=== PATIENT | female | born 1950 | race Caucasian/White ===

== ENCOUNTER 2020-07-18 09:49 | Outpatient (CLI) | payer MEDICARE | END 2020-07-18 09:50 | disposition home or self-care (01) | LOC: CSHMAMMO 09:49 | PROVIDERS: ATTEND Family Medicine | DX: Z12.31 Encounter for screening mammogram for malignant neoplasm of breast (principal) | CPT/HCPCS: 77063; 77067 ==

== ENCOUNTER 2021-01-07 03:35 | Inpatient (IN) | payer OTHER, MEDICARE ==
[2021-01-07] MEDS ORDERED: Fentanyl 100 MCG/2 ML VIAL ONE ×3 (03:47→14:16)
[2021-01-07] MEDS ORDERED: PROPOFOL 20 ML ONE ×2 (03:56→13:04)
[2021-01-07] MEDS ORDERED: Boostrix 0.5 ML (Tdap) VIAL ONE (03:58)
[2021-01-07 04:05] LABS: #Eosinphils 0.1 10x3/uL (0.0-0.5); #Monocytes 0.3 10x3/uL (0.0-1.1); #Neutrophils 4.9 10x3/uL (1.5-8.4); %Basophils 0.5 % (0.0-2.0); %Eosinophils 0.8 % (0.0-6.0); %Lymphocytes 19.6 % (18.0-47.0); %Monocytes 3.8 % (0.0-10.0); %Neutrophils 74.7 % (40.0-75.0); Mean Corpuscular HGB CONC 33.4 g/dL (32.0-36.0); Mean Corpuscular Volume 92.9 fl (81.6-98.3); Mean Platelet Volume 10.1 fl (7.4-10.4); Platelet Count 226 10x3/uL (150-450); RBC Distribution Width 13.9 % (11.5-14.5); Red Blood Cell (RBC) Count 4.51 10x6/uL (3.90-5.03); White Blood Cell (WBC) Count 6.5 10x3/uL (3.5-10.5)
[2021-01-07 04:13] LABS: PTT 22.3 sec (22.0-33.0); Prothrombin Time 10.9 sec (9.5-12.1)
[2021-01-07 04:17] LABS: ALT (SGPT) 13 U/L (8-55); AST (SGOT) 17 U/L (5-34); Albumin 4.5 g/dL (3.4-4.8); Alkaline Phosphatase 60 U/L (40-110); Anion Gap 19 mmol/L (10-20); BUN (Urea Nitrogen) 8 mg/dL (9.8-20.1); Bilirubin, Total 0.4 mg/dL (0.2-1.2); Calc. Creatinine Clearance 0 mL/min (70-130); Calcium 9.2 mg/dL (7.8-10.44); Carbon Dioxide 21 mmol/L (23-31); Chloride 110 mmol/L (98-107); Glucose 133 mg/dL (80-115); Potassium 3.6 mmol/L (3.5-5.1); Protein, Total 7.5 g/dL (5.8-8.1); Sodium 146 mmol/L (136-145)
[2021-01-07 04:32] LABS: Acetaminophen Less than 6.0 mcg/mL (10.0-30.0); Alcohol 182 mg/dL (Less than 10); Salicylate Less than 8.0 mg/dL (15.0-30.0)
[2021-01-07] MEDS ORDERED: Calcium Carbonate 500 MG ChewTAB PO PRN (05:05)
[2021-01-07] MEDS ORDERED: Ondansetron PF 4 MG/2 ML Vial IVP PRN (05:05)
[2021-01-07] MEDS ORDERED: Zolpidem Tartrate 5 MG TAB PO PRN (05:05)
[2021-01-07] MEDS ORDERED: Acetaminophen 325 MG TAB PO PRN (05:05)
[2021-01-07] MEDS ORDERED: Senokot S 8.6-50 MG TAB PO PRN (05:05)
[2021-01-07] MEDS ORDERED: Guaifenesin DM 100-10/5 ML UDCUP PO PRN (05:05)
[2021-01-07] MEDS ORDERED: Lorazepam 2 MG/ML VIAL SLOW IVP PRN (05:09)
[2021-01-07 05:15] LABS: SARS-CoV-2 NAA Rapid Test Not Detected (NotDetected)
[2021-01-07 06:51] VITALS: BMI 26.1
[2021-01-07] MEDS ORDERED: Morphine 4 MG/ML VIAL SLOW IVP PRN (06:59)
[2021-01-07] MEDS: Folic Acid 1 MG TAB PO SCH (09:00)
[2021-01-07] MEDS: Multivitamin W/ Minerals 1 TAB PO SCH (09:00)
[2021-01-07] MEDS: Nicotine 21 MG PATCH TD SCH (09:00)
[2021-01-07] MEDS: Thiamine HCl 200 MG/2 ML VIAL SLOW IVP SCH (09:00)
[2021-01-07] MEDS: Famotidine/PF 20 mg/2ml Vial SLOW IVP SCH ×2 (09:00→23:12)
[2021-01-07] MEDS ORDERED: Lisinopril 5 MG TAB PO SCH (09:00)
[2021-01-07] MEDS ORDERED: Aspirin 81 mg Enteric Coated Tablet PO SCH (09:00)
[2021-01-07] MEDS ORDERED: Cholecalciferol 1,000 UNITS (25 MCG) TAB PO SCH (09:00)
[2021-01-07] MEDS ORDERED: EPINEPHrine 1 MG/ML AMP ONE (13:01)
[2021-01-07] MEDS ORDERED: Neomycin-Polymyxin 1 ML AMP ONE (13:01)
[2021-01-07] MEDS ORDERED: Bupivacaine PF 0.5% 30 ML VIAL ONE (13:01)
[2021-01-07] MEDS ORDERED: Ondansetron PF 4 MG/2 ML Vial ONE (13:04)
[2021-01-07] MEDS ORDERED: Lidocaine 1% PF 5 ML VIAL ONE (13:04)
[2021-01-07] MEDS ORDERED: Dexamethasone 4 mg/ml Vial ONE (13:04)
[2021-01-07] MEDS ORDERED: Midazolam HCl 2 mg/2 ml Vial ONE (13:04)
[2021-01-07] MEDS ORDERED: ceFAZolin 2 GM/DEX 5% 100 ML BAG ONE (13:09)
[2021-01-07] MEDS ORDERED: ePHEDrine Sulfate 50 MG/10 ML VIAL ONE (13:41)
[2021-01-07] MEDS ORDERED: Ketorolac Tromethamine 30 MG/ML VIAL ONE (13:50)
[2021-01-07] MEDS ORDERED: HYDROcodone/Acetaminophen 5/325 mg Tablet PO PRN (15:36)
[2021-01-07] MEDS ORDERED: TETANUS AND DIPHTHERIA TOX/PF 0.5 ML DISP.SYRIN IM SCH (15:45)
[2021-01-07] MEDS: Lactated Ringer's 1,000 ML IV SCH ×2 (16:09→20:17)
[2021-01-07] MEDS ORDERED: Enoxaparin Sodium 40 MG/0.4 ML SYRINGE SC SCH (21:00)
[2021-01-07] MEDS ORDERED: Rosuvastatin 10 MG TAB PO SCH (21:00)
[2021-01-07] MEDS: ceFAZolin Sodium/D5W 2 GM in Premix Bag 1 BAG IVPB SCH (23:03)
[2021-01-07] MEDS: Aspirin 81 mg Enteric Coated Tablet PO SCH (23:04)
[2021-01-07] MEDS: HYDROcodone/Acetaminophen 5/325 mg Tablet PO PRN (23:05)
[2021-01-08] MEDS: Lactated Ringer's 1,000 ML IV SCH ×3 (03:56→17:17)
[2021-01-08] MEDS: ceFAZolin Sodium/D5W 2 GM in Premix Bag 1 BAG IVPB SCH ×3 (05:46→22:38)
[2021-01-08 06:29] LABS: #Monocytes 0.6 10x3/uL (0.0-1.1); #Neutrophils 7.1 10x3/uL (1.5-8.4); %Basophils 0.1 % (0.0-2.0); %Lymphocytes 11.6 % (18.0-47.0); %Monocytes 6.8 % (0.0-10.0); Mean Corpuscular HGB CONC 33.1 g/dL (32.0-36.0); Mean Corpuscular Hemoglobin 31.3 pg (27.0-33.0); Mean Corpuscular Volume 94.6 fl (81.6-98.3); Mean Platelet Volume 10.9 fl (7.4-10.4); Platelet Count 169 10x3/uL (150-450); RBC Distribution Width 13.9 % (11.5-14.5); Red Blood Cell (RBC) Count 3.51 10x6/uL (3.90-5.03); White Blood Cell (WBC) Count 8.8 10x3/uL (3.5-10.5)
[2021-01-08 06:54] LABS: Anion Gap 16 mmol/L (10-20); BUN (Urea Nitrogen) 11 mg/dL (9.8-20.1); CK (CPK) 243 U/L (29-168); Calc. Creatinine Clearance 84 mL/min (70-130); Calcium 8.2 mg/dL (7.8-10.44); Carbon Dioxide 21 mmol/L (23-31); Chloride 106 mmol/L (98-107); Glucose 125 mg/dL (80-115); Magnesium 1.6 mg/dL (1.6-2.6); Potassium 3.9 mmol/L (3.5-5.1); Sodium 139 mmol/L (136-145)
[2021-01-08] MEDS ORDERED: FLU VACC QS2021-22(65YR UP)/PF 240 MCG/0.7 ML SYRINGE IM ONE (07:30)
[2021-01-08] MEDS: Nicotine 21 MG PATCH TD SCH (11:00)
[2021-01-08] MEDS: HYDROcodone/Acetaminophen 5/325 mg Tablet PO PRN ×3 (11:02→20:45)
[2021-01-08] MEDS: Thiamine HCl 200 MG/2 ML VIAL SLOW IVP SCH (11:03)
[2021-01-08] MEDS: Multivitamin W/ Minerals 1 TAB PO SCH (11:03)
[2021-01-08] MEDS: Aspirin 81 mg Enteric Coated Tablet PO SCH ×2 (11:03→20:31)
[2021-01-08] MEDS: Folic Acid 1 MG TAB PO SCH (11:04)
[2021-01-08 11:12] LABS: Hemoglobin A1c 5.6 % (4.0-6.0)
[2021-01-08] MEDS: Famotidine/PF 20 mg/2ml Vial SLOW IVP SCH ×2 (12:37→20:32)
[2021-01-08] MEDS: Lisinopril 20 MG TAB PO SCH (20:31)
[2021-01-08] MEDS: Cholecalciferol 1,000 UNITS (25 MCG) TAB PO SCH (20:31)
[2021-01-08] MEDS: Rosuvastatin 20 MG TAB PO SCH (20:32)
[2021-01-08] MEDS ORDERED: Aspirin 81 mg Enteric Coated Tablet PO SCH (21:00)
[2021-01-09 05:06] LABS: #Monocytes 0.7 10x3/uL (0.0-1.1); #Neutrophils 4.6 10x3/uL (1.5-8.4); %Basophils 0.3 % (0.0-2.0); %Eosinophils 0.4 % (0.0-6.0); %Lymphocytes 27.7 % (18.0-47.0); %Monocytes 9.4 % (0.0-10.0); %Neutrophils 61.8 % (40.0-75.0); Hemoglobin 10.7 g/dL (12.0-15.5); Mean Corpuscular HGB CONC 33.6 g/dL (32.0-36.0); Mean Corpuscular Hemoglobin 31.6 pg (27.0-33.0); Mean Corpuscular Volume 93.8 fl (81.6-98.3); Mean Platelet Volume 10.7 fl (7.4-10.4); Platelet Count 156 10x3/uL (150-450); RBC Distribution Width 14.1 % (11.5-14.5); Red Blood Cell (RBC) Count 3.39 10x6/uL (3.90-5.03); White Blood Cell (WBC) Count 7.4 10x3/uL (3.5-10.5)
[2021-01-09 05:08] LABS: Anion Gap 14 mmol/L (10-20); BUN (Urea Nitrogen) 9 mg/dL (9.8-20.1); CK (CPK) 386 U/L (29-168); Calc. Creatinine Clearance 89 mL/min (70-130); Calcium 8.2 mg/dL (7.8-10.44); Carbon Dioxide 25 mmol/L (23-31); Chloride 107 mmol/L (98-107); Glucose 113 mg/dL (80-115); Potassium 3.6 mmol/L (3.5-5.1); Sodium 142 mmol/L (136-145)
[2021-01-09] MEDS: Lactated Ringer's 1,000 ML IV SCH ×3 (05:15→17:18)
[2021-01-09] MEDS: HYDROcodone/Acetaminophen 5/325 mg Tablet PO PRN ×3 (05:15→23:06)
[2021-01-09] MEDS: ceFAZolin Sodium/D5W 2 GM in Premix Bag 1 BAG IVPB SCH ×3 (05:16→21:07)
[2021-01-09] MEDS: Famotidine/PF 20 mg/2ml Vial SLOW IVP SCH ×2 (10:38→21:07)
[2021-01-09] MEDS: Folic Acid 1 MG TAB PO SCH (10:38)
[2021-01-09] MEDS: Multivitamin W/ Minerals 1 TAB PO SCH (10:38)
[2021-01-09] MEDS: Thiamine HCl 200 MG/2 ML VIAL SLOW IVP SCH (10:38)
[2021-01-09] MEDS: Aspirin 81 mg Enteric Coated Tablet PO SCH ×2 (10:38→21:08)
[2021-01-09] MEDS: Nicotine 21 MG PATCH TD SCH (10:39)
[2021-01-09] MEDS ORDERED: Sodium Chloride 0.9% 500 ML IV SCH (16:15)
[2021-01-09] MEDS: Sodium Chloride 0.9% 1,000 ML IV SCH (18:24)
[2021-01-09] MEDS: Cholecalciferol 1,000 UNITS (25 MCG) TAB PO SCH (21:08)
[2021-01-09] MEDS: Docusate 100 MG CAP PO SCH (21:08)
[2021-01-09] MEDS: Rosuvastatin 20 MG TAB PO SCH (21:08)
[2021-01-09] MEDS: Lisinopril 20 MG TAB PO SCH (21:08)
[2021-01-10] MEDS: Sodium Chloride 0.9% 1,000 ML IV SCH ×2 (01:45→13:29)
[2021-01-10 03:44] LABS: #Eosinphils 0.1 10x3/uL (0.0-0.5); #Monocytes 0.7 10x3/uL (0.0-1.1); #Neutrophils 4.2 10x3/uL (1.5-8.4); %Basophils 0.3 % (0.0-2.0); %Lymphocytes 26.2 % (18.0-47.0); %Monocytes 9.4 % (0.0-10.0); %Neutrophils 61.7 % (40.0-75.0); Hemoglobin 10.7 g/dL (12.0-15.5); Mean Corpuscular HGB CONC 33.5 g/dL (32.0-36.0); Mean Corpuscular Hemoglobin 31.4 pg (27.0-33.0); Mean Corpuscular Volume 93.5 fl (81.6-98.3); Mean Platelet Volume 10.7 fl (7.4-10.4); Platelet Count 164 10x3/uL (150-450); RBC Distribution Width 13.9 % (11.5-14.5); Red Blood Cell (RBC) Count 3.41 10x6/uL (3.90-5.03); White Blood Cell (WBC) Count 6.9 10x3/uL (3.5-10.5)
[2021-01-10 03:59] LABS: Anion Gap 12 mmol/L (10-20); BUN (Urea Nitrogen) 7 mg/dL (9.8-20.1); CK (CPK) 351 U/L (29-168); Calc. Creatinine Clearance 88 mL/min (70-130); Calcium 8.7 mg/dL (7.8-10.44); Carbon Dioxide 26 mmol/L (23-31); Chloride 108 mmol/L (98-107); Glucose 104 mg/dL (80-115); Potassium 3.7 mmol/L (3.5-5.1); Sodium 142 mmol/L (136-145)
[2021-01-10] MEDS: ceFAZolin Sodium/D5W 2 GM in Premix Bag 1 BAG IVPB SCH (05:27)
[2021-01-10] MEDS: Multivitamin W/ Minerals 1 TAB PO SCH (09:49)
[2021-01-10] MEDS: Famotidine/PF 20 mg/2ml Vial SLOW IVP SCH (09:49)
[2021-01-10] MEDS: Thiamine HCl 200 MG/2 ML VIAL SLOW IVP SCH (09:49)
[2021-01-10] MEDS: Aspirin 81 mg Enteric Coated Tablet PO SCH (09:49)
[2021-01-10] MEDS: Folic Acid 1 MG TAB PO SCH (09:49)
[2021-01-10] MEDS: Docusate 100 MG CAP PO SCH (09:50)
[2021-01-10] MEDS: Nicotine 21 MG PATCH TD SCH (09:50)
[2021-01-10 11:58] VITALS: BP 136/79; TEMP 98.8
[2021-01-10] MEDS ORDERED: CEFAZOLIN 2 GM in Premix Bag 1 BAG IVPB SCH (14:00)
== END 2021-01-10 15:17 | disposition home health service (06) | DRG 493 ==
LOC: CSHERS 03:35 → CSHTELE 06:42
PROVIDERS: ADMIT Student in an Organized Health Care Education/Training Program; ATTEND Internal Medicine
PROC: 0QSG04Z Reposition Right Tibia with Internal Fixation Device, Open Approach (ICD-10-PCS; principal; 2021-01-07)
DX: S82.851A Displaced trimalleolar fracture of right lower leg, initial encounter for closed fracture (principal); M62.82 Rhabdomyolysis; F33.9 Major depressive disorder, recurrent, unspecified; W01.0XXA Fall on same level from slipping, tripping and stumbling without subsequent striking against object, initial encounter; E78.5 Hyperlipidemia, unspecified; F41.9 Anxiety disorder, unspecified; F10.129 Alcohol abuse with intoxication, unspecified; I10 Essential (primary) hypertension; Z20.822 Contact with and (suspected) exposure to COVID-19; F17.210 Nicotine dependence, cigarettes, uncomplicated
CPT/HCPCS: 27818; 36415; 71045; 76000; 80048; 80053; 80307; 82550; 83036; 83735; 85025; 85610; 85730; 90471; 90715; 93005; 94760; 96365; 96375; 99152; C1713; C1769; J0171; J0690; J1100; J1650; J1885; J2250; J2405; J2704; J3010; J3411; J7050; J7120; S0020; S0028; U0002

== ENCOUNTER 2021-07-23 09:35 | Outpatient (CLI) | payer MEDICARE | END 2021-07-23 09:36 | disposition home or self-care (01) | LOC: CSHMAMMO 09:35 | PROVIDERS: ATTEND Family Medicine | DX: Z12.31 Encounter for screening mammogram for malignant neoplasm of breast (principal); M85.89 Other specified disorders of bone density and structure, multiple sites | CPT/HCPCS: 77063; 77067; 77080 ==

== ENCOUNTER 2022-10-21 10:11 | Outpatient (CLI) | payer MEDICARE | END 2022-10-21 10:12 | disposition home or self-care (01) | LOC: CSHMAMMO 10:11 | PROVIDERS: ATTEND Family Medicine | DX: Z12.31 Encounter for screening mammogram for malignant neoplasm of breast (principal) | CPT/HCPCS: 77063; 77067 ==

== ENCOUNTER 2024-12-13 11:17 | Outpatient (CLI) | payer MEDICARE | END 2024-12-13 11:18 | disposition home or self-care (01) | LOC: CSHMAMMO 11:17 | PROVIDERS: ATTEND Nurse Practitioner Family | DX: Z12.31 Encounter for screening mammogram for malignant neoplasm of breast (principal) | CPT/HCPCS: 77063; 77067 ==

== ENCOUNTER 2025-02-28 08:02 | Outpatient (CLI) | payer MEDICARE | END 2025-02-28 08:03 | disposition home or self-care (01) | LOC: CSHULT 08:02 | PROVIDERS: ATTEND Family Medicine | DX: Z13.6 Encounter for screening for cardiovascular disorders (principal); Z12.2 Encounter for screening for malignant neoplasm of respiratory organs; Z87.891 Personal history of nicotine dependence; I25.10 Atherosclerotic heart disease of native coronary artery without angina pectoris; I25.84 Coronary atherosclerosis due to calcified coronary lesion | CPT/HCPCS: 71271; 76706 ==